=== PATIENT | male | born 1980 | race Caucasian/White ===

== ENCOUNTER 2016-04-24 15:15 | Emergency (ER) | payer SELFPAY ==
[~2016-04-24] VITALS: Ht 182.9 cm; Wt 123.8 kg
[~2016-04-24 15:15] MED LIST: NAPROXEN
[2016-04-24 15:47] VITALS: BP 113/73
--- NOTE | 2016-04-24 15:49 | NUR ---
Patient ambulated to bed 3. RN evaluating patient at bedside.
--- NOTE | 2016-04-24 15:56 | NUR ---
Dr. Linda evaluating patient at bedside.
[2016-04-24] MEDS ORDERED: PROMETH/CODEINE 6.25-10MG/5ML 5 ML UDC PO ONE (16:00)
--- NOTE | 2016-04-24 16:12 | NUR ---
MEDICATED FOR COUGH
--- NOTE | 2016-04-24 16:43 | NUR ---
HOLDING CONVERSATION ON PT'S CELL PHONE --OCCASIONAL COUGH HEARD---NO S/S APPARENT RESP DISTRESS NOTED AT THIS TIME.
[2016-04-24 17:30] VITALS: BP 120/65
--- NOTE | 2016-04-24 17:30 | NUR ---
Patient discharged with v/s stable. Written and verbal after care instructions given and explained. Patient alert, oriented and verbalized understanding of instructions. Ambulatory with steady gait. All questions addressed prior to discharge. ID band removed. Patient advised to follow up with PMD. Rx of LEVAQUIN AND PROMETHIZINE given. Patient educated on indication of medication including possible reaction and side effects. Opportunity to ask questions provided and answered.
== END 2016-04-24 17:30 | disposition home or self-care (01) ==
LOC: MED 15:15
DX: J40 Bronchitis, not specified as acute or chronic (principal)
CPT/HCPCS: 71010; 99283; Q0092

== ENCOUNTER 2016-05-03 17:23 | Emergency (ER) | payer SELFPAY ==
[~2016-05-03] VITALS: Ht 182.9 cm; Wt 125.6 kg
[2016-05-03 18:22] VITALS: BP 135/79
--- NOTE | 2016-05-03 19:43 | NUR ---
PATIENT PRESENTS TO ED WITH C.O. OF LEFT FOOT PAIN AND ANKLE SWELLING FOR 1 WEEK. DENIES N/V/D; SKIN IS PINK/WARM/DRY; AAOX4 WITH EVEN AND STEADY GAIT; LUNGS CLEAR BL; HR EVEN AND REGULAR; PT DENIES ANY FEVER, CP, SOB, OR COUGH AT THIS TIME; PATIENT STATES PAIN OF 9/10 AT THIS TIME; VSS; PATIENT POSITIONED FOR COMFORT; HOB ELEVATED; BEDRAILS UP X2; BED DOWN. ER MD MADE AWARE OF PT STATUS.
--- NOTE | 2016-05-03 19:54 | NUR ---
DESIGN PROJECT MANAGER AT PT BEDSIDE SEEING PT FOR EVALUATION.
[2016-05-03] MEDS ORDERED: KETOROLAC 30 MG/ML VIAL IM ONE (20:05)
[2016-05-03 21:09] VITALS: BP 139/60
--- NOTE | 2016-05-03 21:10 | NUR ---
Patient discharged with v/s stable. Written and verbal after care instructions given and explained. Patient alert, oriented and verbalized understanding of instructions. Ambulatory with steady gait. All questions addressed prior to discharge. ID band removed. Patient advised to follow up with PMD. Rx of PROMETH WITH CODEINE AND MOTRIN given. Patient educated on indication of medication including possible reaction and side effects. Opportunity to ask questions provided and answered.
== END 2016-05-03 21:10 | disposition home or self-care (01) ==
LOC: MED 17:23
DX: M25.572 Pain in left ankle and joints of left foot (principal)
CPT/HCPCS: 29515; 36415; 73610; 82948; 84550; 96372; 99285; J1885

== ENCOUNTER 2017-08-01 01:45 | Emergency (ER) | payer SELFPAY ==
[~2017-08-01] VITALS: Ht 182.9 cm; Wt 102.1 kg
[2017-08-01 01:48] VITALS: BP 132/65
--- NOTE | 2017-08-01 01:53 | NUR ---
TO BED # 4 AMBULATORY , A/W XRAY OF HIS WRIST.
--- NOTE | 2017-08-01 01:54 | NUR ---
37 Y/O M W/C/O LEFT WRIST PAIN, FOR 3 DAYS, S/P CARRYING HEAVY OBJECT. NO MED HX, OR S/S OF DISTRESS NOTED. ER MD MADE AWARE.
[2017-08-01] MEDS ORDERED: IBUPROFEN 800 MG TAB PO ONE (02:05)
[2017-08-01 02:30] VITALS: BP 132/65
--- NOTE | 2017-08-01 02:30 | NUR ---
Patient discharged with v/s stable. Written and verbal after care instructions given and explained. Patient alert, oriented and verbalized understanding of instructions. Ambulatory with steady gait. All questions addressed prior to discharge. ID band removed. Patient advised to follow up with PMD. Rx of motrin 800 mg given. Patient educated on indication of medication including possible reaction and side effects. Opportunity to ask questions provided and answered.
== END 2017-08-01 02:30 | disposition home or self-care (01) ==
LOC: MED 01:45
DX: S63.502A Unspecified sprain of left wrist, initial encounter (principal); R03.0 Elevated blood-pressure reading, without diagnosis of hypertension; X58.XXXA Exposure to other specified factors, initial encounter; Y93.89 Activity, other specified; Y92.89 Other specified places as the place of occurrence of the external cause; Y99.8 Other external cause status
CPT/HCPCS: 29125; 73110; 99284; Q0092

== ENCOUNTER 2018-02-14 21:46 | Emergency (ER) | payer SELFPAY ==
[~2018-02-14] VITALS: Ht 180.3 cm; Wt 111.1 kg
[2018-02-14 21:47] VITALS: BP 132/84
[2018-02-14 22:06] VITALS: BP 132/84
== END 2018-02-14 22:06 | disposition home or self-care (01) ==
LOC: MED 21:46
DX: J98.01 Acute bronchospasm (principal); B34.9 Viral infection, unspecified; F17.210 Nicotine dependence, cigarettes, uncomplicated
CPT/HCPCS: 99283

== ENCOUNTER 2018-10-04 08:25 | Emergency (ER) | payer OTHER ==
[~2018-10-04] VITALS: Ht 180.3 cm; Wt 117.9 kg
[2018-10-04 08:33] VITALS: BP 145/92
--- NOTE | 2018-10-04 08:45 | NUR ---
BIB SELF. AAO X4 C/O LT 1ST TOE PAIN X2 DAYS. PT REPORTS CONSTANT THROBING PAIN AT 9/10 THAT INCREASES WITH PALPATION OR MOVEMENT. PT DENIES TRAUMA OR INJURY. MILD SWELLING NOTED TO LEFT 1ST TOE. PT STATES THAT HE THINKS THIS IS A GOUT ATTACK. + CMS TO LEFT FOOT AND TOES. PT HAS STEADY GAIT. ER TO EVALUATE PT.
--- NOTE | 2018-10-04 08:47 | NUR ---
DR PEACOCK AT BEDSIDE FOR PT EVAL
[2018-10-04] MEDS ORDERED: NAPROXEN 500 MG TAB PO SCH (09:00)
[2018-10-04] MEDS ORDERED: predniSONE 20 MG TAB PO ONE (09:00)
[2018-10-04 09:30] VITALS: BP 139/88
== END 2018-10-04 09:30 | disposition home or self-care (01) ==
LOC: MED 08:25
DX: M10.072 Idiopathic gout, left ankle and foot (principal)
CPT/HCPCS: 99283; J7512

== ENCOUNTER 2020-08-26 21:11 | Emergency (ER) | payer OTHER ==
--- NOTE | 2020-08-26 21:18 | NUR ---
PER ADMIT STAFF. PT HAS LEFT FACILITY AND DOES NOT WANT MEDICAL TREATMENT BY DR. VILLANUEVA AT THIS TIME. NO FURTHER CARE PROVIDED FOR PATIENT.
== END 2020-08-26 21:18 | disposition left against medical advice (07) ==
LOC: MED 21:11
DX: R04.2 Hemoptysis (principal); Z53.21 Procedure and treatment not carried out due to patient leaving prior to being seen by health care provider